=== PATIENT | male | born 1950 | race Caucasian/White ===

== ENCOUNTER 2017-10-20 08:11 | Outpatient (CLI) | payer MEDICARE, OTHER ==
--- NOTE | 2017-10-20 10:53 | MRI ---
BRAIN MRI WITH AND WITHOUT CONTRAST: HISTORY: Pituitary protocol. Brain lab protocol. History of tumor. Previous resection in 2016. COMPARISON: 06/27/14. TECHNIQUE: Brain MRI and pituitary gland MRI are performed with and without intravenous Gadolinium administratio n. Multisequential, multiplanar imaging is performed. FINDINGS: Calvarium has a normal T1 marrow signal intensity. Midline brain parenchymal structures are unremark able. Central arterial flow voids are maintained. Absent restricted diffusion. Partially empty sella is noted. Pituitary stalk is midline. The optic chiasm and pre-chiasmatic opt ic nerves do not have any mass effect. T2 and FLAIR white matter hyperintensities are again noted. The degree of FLAIR white matter hyperin tensity has progressed since the previous examination. Findings may be due to chronic small-vessel i schemic change. The previously noted FLAIR hyperintensity in the left suprasellar region is no longe r evident. Postcontrast dynamic images do not demonstrate evidence of a microadenoma or macroadenoma, associated with the pituitary gland. Residual pituitary tissue is noted in the sella. There is intrinsic T1 h ypointensity without evidence of enhancement along the left aspect of the sella which may represent a symmetrically prominent osseous margin of the sella. There is similar signal intensity as to adjacen t clinoid process on the T2 weighted images. No pathologic enhancement of the brain parenchyma. IMPRESSION: No MR evidence of macroadenoma or microadenoma. POS: [facility]
== END 2017-10-20 08:12 | disposition home or self-care (01) ==
LOC: TBSIIMAG 08:11
PROVIDERS: ATTEND Neurological Surgery
DX: D44.3 Neoplasm of uncertain behavior of pituitary gland (principal)
CPT/HCPCS: 70553; 82565

== ENCOUNTER 2017-10-28 09:50 | Outpatient (CLI) | payer MEDICARE ==
--- NOTE | 2017-10-28 12:52 | MRI ---
MRI CERVICAL SPINE WITHOUT CONTRAST: HISTORY: M47.812 (cervical spondylosis without myelopathy). Severe neck pain. COMPARISON: Cervical spine MRI from 2015. FINDINGS: The cerebellar tonsils terminate just below the foramen magnum. The marrow signal in the clivus is n ormal. Mildly exaggerated cervical lordosis. Mild bilateral symmetric paraspinal muscular atrophy. No acute fracture. No malalignment. No marrow infiltrative process of the cervical spine. The levels are as follows: C2-C3: Mild disk desiccation. No neural foraminal or spinal canal narrowing. C3-C4: There is a broad-based posterior disk osteophyte complex. No evidence of any process hypertr ophy. There is moderate bilateral neural foraminal narrowing. There is mild left effacement in the ventral CSF space of the canal that measures over a centimeter. C4-C5: Moderate disk desiccation. Moderate uncinate process hypertrophy and posterior disk osteophy te complex. Moderate facet arthrosis. Moderate right and mild left-sided neural foraminal narrowing . The spinal canal is not significantly narrowed. C5-C6: Extensive posterior degenerative disk space height loss. There is a right central, paracentr al, and subforaminal posterior disk osteophyte complex causing moderate to severe right-sided neural foraminal narrowing, moderate left-sided neural foraminal narrowing, and mild ligamentum flavum hyper trophy. The spinal canal is not significantly narrowed. C6-C7: Mild degenerative disk space height loss. Disk desiccation. There is uncinate process hyper trophy. There is moderate facet arthrosis. There is moderate left and mild right-sided neural forami nal narrowing. The spinal canal measures over a centimeter. C7-T1: Mild disk desiccation. Mild facet arthrosis. No significant neural foraminal or spinal tatyana l narrowing. IMPRESSION: 1. Moderate spondylosis, as described above. 2. Multilevel areas of neural foraminal narrowing. POS: [facility]
--- NOTE | 2017-10-28 13:20 | MRI ---
MRI OF LUMBAR SPINE: DATE: 10/28/17. HISTORY: Intervertebral degenerative disk changes with radiculopathy of the lumbar spine. COMPARISON: 10/01/11. FINDINGS: As noted on prior MRI lumbar spine, there is a large increased T2 and decreased T1 weighted signal in tensity cystic msss incompletely imaged in a left retroperitoneal location. CT exam in 2012 demonstr ated a large Bosniak type II cystic left renal lesion. The remainder of the visualized retroperitone al structures demonstrate a normal MRI appearance. There are a few increased T1 and T2 weighted signal intensity foci seen within the L2 and L3 vertebra l bodies likely related to focal areas of fat or small hemangiomas. The conus medullaris is normal in appearance and terminates at the level of the L1 vertebral body. L1-2 level: There is no disk bulge or disk herniation. Central spinal canal and neural foramina are patent. L2-3 level: There is no disk bulge or disk herniation. The central spinal canal and neural foramina are patent. L3-4 level: There are mild facet hypertrophic changes present. There is minimal disk bulge, but the central spinal canal and neural foramina are patent. L4-5 level: Prominent facet hypertrophic changes are again seen. There is fluid signal intensity in the facets joints at this level. No significant disk bulge or disk herniation is seen. The central spinal and neural foramina are patent. L5-S1 level: Previously noted tiny annular tear within the intervertebral disk on prior study is lef t perceptible on the current study. There is a tiny central disk protrusion present on this exam. C entral spinal canal and neural foramen are patent. There are mild facet degenerative changes at this level. IMPRESSION: 1. Minimal degenerative disk changes lower lumbar spine. However, the central spinal canal and neur al foramen are widely patent at all levels of the lumbar spine. There are prominent facet hypertroph y changes in the lumbar spine greater at the L4-5 level. 2. Incompletely imaged large cystic lesion retroperitoneal region on the left. A large cystic mass- like lesion was seen on CT abdomen on 10/01/11 which was characteristics of a Bosniak type II cystic r enal lesion. POS: [facility]
== END 2017-10-28 09:51 | disposition home or self-care (01) ==
LOC: TBSIIMAG 09:50
PROVIDERS: ATTEND Nurse Practitioner Family
DX: M51.16 Intervertebral disc disorders with radiculopathy, lumbar region (principal); M47.812 Spondylosis without myelopathy or radiculopathy, cervical region; M47.26 Other spondylosis with radiculopathy, lumbar region; M99.83 Other biomechanical lesions of lumbar region; M48.061 Spinal stenosis, lumbar region without neurogenic claudication; M99.81 Other biomechanical lesions of cervical region
CPT/HCPCS: 72141; 72148

== ENCOUNTER 2017-12-12 14:52 | Outpatient (CLI) | payer MEDICARE ==
[2017-12-12 16:07] LABS: #Basophils 0.1 thou/uL (0.0-0.2); #Eosinphils 0.3 thou/uL (0.0-0.7); #Lymphocytes 2.5 thou/uL (1.20-3.40); #Monocytes 0.7 thou/uL (0.11-0.59); #Neutrophils 6.7 thou/uL (1.40-6.50); %Basophils 0.8 % (0.0-1.0); %Eosinophils 3.3 % (0.0-10.0); %Monocytes 6.7 % (0.0-10.0); %Neutrophils 65.2 % (42.0-75.0); Hemoglobin 15.4 g/dL (14.0-18.0); Mean Corpuscular Hemoglobin 31.3 pg (27.0-31.0); Mean Corpuscular Volume 92.1 fL (78.0-98.0); Mean Platelet Volume 8.5 fL (7.4-10.4); Platelet Count 208 thou/uL (130-400); RBC Distribution Width 12.2 % (11.5-14.5); Red Blood Cell (RBC) Count 4.91 mill/uL (4.70-6.10); White Blood Cell (WBC) Count 10.2 thou/uL (4.8-10.8)
[2017-12-12 16:30] LABS: ALT (SGPT) 15 U/L (8-55); AST (SGOT) 17 U/L (5-34); Albumin 4.2 g/dL (3.4-4.8); Alkaline Phosphatase 88 U/L (40-150); Anion Gap 12 mmol/L (10-20); BUN (Urea Nitrogen) 20 mg/dL (8.4-25.7); Bilirubin, Total 0.8 mg/dL (0.2-1.2); Calc. Creatinine Clearance 0 mL/min (70-130); Calcium 9.3 mg/dL (7.8-10.44); Carbon Dioxide 24 mmol/L (23-31); Chloride 107 mmol/L (98-107); Estimated GFR-MDRD 64; Globulin 3.5 g/dL (2.4-3.5); Glucose 117 mg/dL (80-115); Protein, Total 7.7 g/dL (5.8-8.1); Sodium 139 mmol/L (136-145)
== END 2017-12-12 14:53 | disposition home or self-care (01) ==
LOC: LABBT 14:52
PROVIDERS: ATTEND Surgery
DX: Z01.818 Encounter for other preprocedural examination (principal); Z98.84 Bariatric surgery status
CPT/HCPCS: 80053; 85025; 93005; 93010

== ENCOUNTER 2017-12-13 12:20 | Outpatient (CLI) | payer MEDICARE ==
--- NOTE | 2017-12-13 13:43 | RAD ---
ESOPHOGRAM: History: Dysphagia. Prior lap band surgery. Abdominal pain. FINDINGS: Single column barium evaluation of the esophagus shows lap band at the GE junction in good radiograph ic position. No significant obstruction of flow restriction of contrast. Small hiatal hernia with min imal reflux. No leak of contrast. IMPRESSION: Very small hiatal hernia with minimal reflux. Lap band is in good position without evidence of compli cation or significant restriction of flow. POS: [facility]
== END 2017-12-13 12:21 | disposition home or self-care (01) ==
LOC: RAD 12:20
PROVIDERS: ATTEND Surgery
DX: Z48.815 Encounter for surgical aftercare following surgery on the digestive system (principal); Z98.84 Bariatric surgery status; K44.9 Diaphragmatic hernia without obstruction or gangrene; K21.9 Gastro-esophageal reflux disease without esophagitis
CPT/HCPCS: 74220

== ENCOUNTER 2017-12-16 09:59 | Day surgery (SDC) | payer MEDICARE ==
[2017-12-15 16:18] VITALS: BMI 38.7
[2017-12-16] MEDS ORDERED: Midazolam HCl 2 mg/2 ml Vial ONE (10:42)
[2017-12-16] MEDS ORDERED: Fentanyl 250 MCG/5 ML VIAL ONE (10:42)
[2017-12-16] MEDS ORDERED: Lidocaine 2% Jelly 5 ML TUBE ONE (10:43)
[2017-12-16] MEDS ORDERED: Bupivacaine/Epinephrine 0.25% 30 ML VIAL ONE (10:45)
[2017-12-16] MEDS ORDERED: CEFAZOLIN/Water 2 GM/20 ML SYRINGE ONE (10:53)
[2017-12-16] MEDS ORDERED: SUGAMMADEX SODIUM 200 MG/2 ML VIAL ONE (11:50)
--- NOTE | 2017-12-16 12:24 | OP ---
DATE OF PROCEDURE: 12/16/2017 PREOPERATIVE DIAGNOSIS: Obstructed lap band. SURGEON: Gómez Mckeon M.D. PROCEDURE: Laparoscopic removal of lap band and port. INDICATIONS: A 67-year-old male who has an empty lap band, he is unable to eat any solid food. Uppe r GI showed reflux. FINDINGS: The system was intact. Moderate adhesions. PROCEDURE IN DETAIL: After informed consent was obtained, the patient was taken to the operating alyssa m and given general endotracheal anesthesia. He was placed in the supine position. The abdomen was prepped and draped in usual fashion. Local anesthesia infiltrated subcutaneously and deep. A 5 mm i ncision was performed approximately 7 inches below the xiphoid slightly to the left. Veress needle i nserted. Drop test performed. Pneumoperitoneum was created to a volume of 2 liters of carbon dioxid e. Utilizing a bladeless 5 mm trocar and 0 degree laparoscope direct visual entry in the abdominal c avity was performed. Pneumoperitoneum was then created to a pressure of 15 mmHg and the patient plac ed in steep reverse Trendelenburg position. Nathansen liver retractor inserted. Left lobe of liver retracted superiorly. A 12 mm port was placed at the port site and a 5 mm port placed just to the le ft of the falciform. I had to add an extra 5 mm port for retraction as anesthesia could not insert a NG tube to decompress the stomach. The stomach was retracted inferiorly. The band was found. The buckle was dissected out. The buckle was unlocked, then Anesthesia was able to insert the NG tube. The capsule was incised. The band was removed from around the stomach and then removed from the abdo men. Hemostasis was assured. Trocars and retractors removed. The lap band port was dissected out a nd removed intact. Hemostasis was assured. The subcutaneous reapproximated with interrupted 3-0 Herberth ryl. Skin closed with interrupted 4-0 Rapide. Dermabond applied. The patient tolerated the procedu re well and was transferred to recovery in good condition. Sponge and needle count verified correct x2.
== END 2017-12-16 13:45 | disposition home or self-care (01) ==
LOC: SDC 09:59 → EDSTATUS 16:24
PROVIDERS: ATTEND Surgery
PROC: 0DP64CZ Removal of Extraluminal Device from Stomach, Percutaneous Endoscopic Approach (ICD-10-PCS; principal; 2017-12-16)
DX: K95.09 Other complications of gastric band procedure (principal); K21.9 Gastro-esophageal reflux disease without esophagitis; Z79.899 Other long term (current) drug therapy
CPT/HCPCS: J2250; J3010

== ENCOUNTER 2017-12-19 11:11 | Outpatient (CLI) | payer MEDICARE ==
--- NOTE | 2017-12-19 13:27 | RAD ---
FOUR VIEWS CERVICAL SPINE: Comparison: MRI cervical spine, 10-28-17. History: Neck pain for seven years. History of arthritis. FINDINGS: AP, swimmer's, flexion, and extension views of the cervical spine were performed. The vertebral ayde s demonstrate normal height and alignment without fracture or subluxation. Alignment is unchanged wit h flexion and extension. No prevertebral soft tissue swelling is seen. IMPRESSION: Unchanged alignment of the cervical spine with bending. POS: [facility]
== END 2017-12-19 11:12 | disposition home or self-care (01) ==
LOC: TBSIIMAG 11:11
PROVIDERS: ATTEND Neurological Surgery
DX: M54.12 Radiculopathy, cervical region (principal)
CPT/HCPCS: 72040

== ENCOUNTER 2018-02-07 14:43 | Outpatient (CLI) | payer MEDICARE ==
[2018-02-07 16:11] LABS: Hemoglobin 14.9 g/dL (14.0-18.0); Mean Corpuscular HGB CONC 34.1 g/dL (32.0-36.0); Mean Corpuscular Hemoglobin 31.8 pg (27.0-31.0); Mean Corpuscular Volume 93.1 fL (78.0-98.0); Mean Platelet Volume 8.3 fL (7.4-10.4); Platelet Count 220 thou/uL (130-400); RBC Distribution Width 12.5 % (11.5-14.5); White Blood Cell (WBC) Count 9.5 thou/uL (4.8-10.8)
[2018-02-07 16:16] LABS: Prothrombin Time 13.1 SEC (12.0-14.7)
== END 2018-02-07 14:44 | disposition home or self-care (01) ==
LOC: LABBT 14:43
PROVIDERS: ATTEND Neurological Surgery
DX: Z01.812 Encounter for preprocedural laboratory examination (principal); M47.22 Other spondylosis with radiculopathy, cervical region
CPT/HCPCS: 85027; 85610; 85730

== ENCOUNTER 2018-02-07 15:00 | Inpatient (IN) | payer MEDICARE ==
[2018-02-07 15:06] VITALS: BMI 38.7
--- NOTE | 2018-02-08 13:32 | HP ---
HISTORY OF PRESENT ILLNESS: Mr. Jang is a patient who we have treated for pituitary adenoma in the past. He has returned to us to discuss longstanding neck pain. The pain is worse on the right comp ared to the left and affects the top of his shoulders but not the arms. There is no numbness, weakne ss, imbalance or incontinence at this time. The neck pain has been there for years and is associated with headaches as well. Injection of therapy, medications, and anti-inflammatories, activity modifi cation at times has not made the neck any better. PAST MEDICAL HISTORY: Hypertension, cyst on the kidneys, headaches, pituitary adenoma. ALLERGIES: No known drug allergies. PAST SURGICAL HISTORY: Lap band 02/2010, pituitary adenoma, craniotomy in 2016. Laparoscopic band r emoval 12/2017. MEDICATIONS: Blood pressure medications, venlafaxine HCL extended release, Flomax. FAMILY HISTORY: Father is alive. Mother is alive. Siblings are alive. SOCIAL HISTORY: The patient is a nonsmoker and does not use any other tobacco products. Drinks alco hol occasionally. Does not use any other illicit drugs. Works in the [employer]. He is with 3 children. Drinks 1-2 cups of caffeinated beverages a day. PHYSICAL EXAMINATION: GENERAL: Patient is alert and oriented, sitting up comfortably in office no sign of physical distres s. RESPIRATORY: Normal work of breathing room air. Normal chest rise, equal bilateral symmetrical. CARDIAC: Regular rate and rhythm. Normal S1, S2. NEUROLOGIC: Gait and station are normal. Motor exam, mild right deltoid weakness. There is normal strength in the biceps, triceps, wrist extensors, finger extensors, and interossei. Sensory; normal at the biceps, brachial radialis and triceps. No clonus. IMAGING: MRI cervical spine. Right foraminal disease, most severe at C3-4, C4-5, C5-6, no cord comp ression. ASSESSMENT: Cervical spondylosis without myelopathy and cervical disk disorder with radiculopathy. PLAN. Dr. Izquierdo has offered ACDF C3 through 6. We have discussed the indications, risks, benefi ts, alternatives, and expected results of the surgery. The risks included, but were not limited to b leeding, infection, CSF leak, nerve damage, weakness, swallowing trouble, feeding tube placement, tra cheal injury, esophageal injury, vocal cord injury, spinal cord injury, incontinence, paralysis, vent ilator dependence, wheelchair dependence, stroke, also vision, carotid artery injury, jugular vein in jury, hardware misplacement, cardiopulmonary complications of anesthesia or . Long-term complic ations discussed included, but were not limited to hardware failure and degradation of surrounding di sks. The patient states that he understands the risks of surgery and is willing to proceed.
[2018-02-10] MEDS ORDERED: Sodium Chloride 0.9% 30 ML ONE (06:18)
[2018-02-10] MEDS ORDERED: Thrombin 5000 UNITS/5 ML VIAL ONE (06:18)
[2018-02-10] MEDS ORDERED: Midazolam HCl 2 mg/2 ml Vial ONE (06:41)
[2018-02-10] MEDS ORDERED: CEFAZOLIN/Water 2 GM/20 ML SYRINGE ONE (06:47)
[2018-02-10] MEDS ORDERED: Fentanyl 100 MCG/2 ML VIAL ONE ×5 (06:58→13:22)
[2018-02-10] MEDS ORDERED: Promethazine HCl 25 MG/ML VIAL SLOW IVP PRN (11:20)
[2018-02-10] MEDS ORDERED: Promethazine HCl 25 MG/ML VIAL IM PRN ×2 (11:20→11:41)
[2018-02-10] MEDS ORDERED: HYDROmorphone 2 MG/ML VIAL SLOW IVP PRN (11:20)
[2018-02-10] MEDS ORDERED: Meperidine HCl/PF 25 MG/ML VIAL SLOW IVP PRN (11:20)
[2018-02-10] MEDS ORDERED: Morphine Sulfate 2 MG/ML SYRINGE SLOW IVP PRN (11:20)
[2018-02-10] MEDS ORDERED: Ondansetron HCl/PF 4 MG/2 ML Vial IVP PRN ×2 (11:20→11:41)
[2018-02-10] MEDS ORDERED: diphenhydrAMINE 50 MG/ML VIAL IVP PRN (11:41)
[2018-02-10] MEDS ORDERED: Acetaminophen 650 MG Suppository PR PRN (11:41)
[2018-02-10] MEDS ORDERED: traMADol HCl 50 MG TAB PO PRN ×2 (11:41)
[2018-02-10] MEDS ORDERED: Cyclobenzaprine 10 MG TAB PO PRN (11:41)
[2018-02-10] MEDS ORDERED: Promethazine 25 MG TAB PO PRN (11:41)
[2018-02-10] MEDS ORDERED: Prochlorperazine 10 MG/2 ML VIAL IM PRN (11:41)
[2018-02-10] MEDS ORDERED: Promethazine HCl 12.5 MG SUPP PR PRN (11:41)
[2018-02-10] MEDS ORDERED: diphenhydrAMINE 25 MG CAP PO PRN (11:41)
[2018-02-10] MEDS ORDERED: tiZANidine HCl 4 MG TAB PO PRN (11:41)
[2018-02-10] MEDS ORDERED: Acetaminophen 325 MG TAB PO PRN (11:41)
[2018-02-10] MEDS ORDERED: Acetaminophen/Codeine 30-300mg Tablet PO PRN ×2 (11:41)
[2018-02-10] MEDS ORDERED: Scopolamine 1.5 mg/72 hour Patch TD SCH (12:00)
--- NOTE | 2018-02-10 12:47 | OP ---
DATE OF PROCEDURE: 02/10/2018 SURGEON: Nura Izquierdo M.D. ASSEMBLER INSTALLER GENERAL: None. PREOPERATIVE INDICATION: Treat pain, prevent neurological deterioration. PREOPERATIVE DIAGNOSES: Multilevel cervical spondylosis with right-sided foraminal stenosis at C3-4, C4-5, and C5-6, right cervical radiculopathies and neck pain. POSTOPERATIVE DIAGNOSES: Multilevel cervical spondylosis with right-sided foraminal stenosis at C3-4 , C4-5, and C5-6, right cervical radiculopathies and neck pain. OPERATIVE PROCEDURE: Anterior cervical diskectomy, intervertebral arthrodesis, placement of interver tebral biomechanical device, anterior cervical plating C3-4, C4-5, C5-6, local morselized autograft, morselized allograft, and operating microscope. PREOPERATIVE MEDICATIONS: Ancef 2 grams IV. DRAIN NUMBER: Zero. DRAIN TYPE: None. OPERATIVE DICTATION: The patient was brought to the operating room. General endotracheal anesthesia was induced. The patient was positioned supine and his neck kept in normal anatomic alignment. The head was rested in a donut shaped head rest and a lateral fluoro radiograph was used to plan our inc ision. The right side of the neck was sterilely prepped and draped. We opened our incision with a 1 0 blade knife and controlled bleeding with bipolar cautery. We dissected sharply to the platysma and cut this muscle in line with our incision. We continued our dissection medial to the sternocleidoma stoid and lateral to the trachea and esophagus. We arrived at the prevertebral space and placed a ma rker at C3-4. We took a lateral fluoro radiograph to confirm the levels upon which we were operating . We then elevated the longus colli muscles off the anterior surface of C3, C4, C5, C6, and placed a self-retaining retractor. We placed distraction pins at C3 and C5 and distracted across both of the intervening interspaces. We incised the interspaces with a 15 blade knife and removed disk contents using curettes and rongeurs. As we approached the posterior longitudinal ligament and brought the o perating microscope into the field. Under microscopic magnification using microsurgical techniques, we removed the remainder of the inter vertebral disk. We accessed the ventral epidural space with a micro curette and removed posterior os teophytes and posterior longitudinal ligament from [address] to the other across the enti re interspace and decompress the dura well. This was done with Kerrison rongeurs. At the completion of decompression, we turned our attention to arthrodesis. We prepared the endplates for arthrodesis using curettes, but to remove the cartilaginous cap. We measured the height of each interspace with a bone rasp. The C3-4 interspace measured 8 mm and the C4-5 interspace measured 7 mm. The appropri ately sized PEEK intervertebral grafts were brought into the field. Osteophytes from anterior and po sterior margin of the vertebral bodies were carefully cleaned of their soft tissue attachments on the back table. The bone was morselized and added to demineralized bone matrix as our fusion substrate. The substrate was packed in the PEEK grafts and the grafts were advanced into the respective inters paces under radiographic guidance to the appropriate depth. We then removed our distraction pin from C3 and placed it at C6. We moved our lateral retractors under the longus colli muscles at C5 and C6 and we incised the interspace with a 15 blade knife. We removed disk contents using curettes and ro ngeurs. Using microsurgical techniques, we removed the remainder of the intervertebral disks, accessed the ve ntral epidural space with a micro curette, and removed posterior osteophytes and posterior longitudin al ligament across the entire interspace with micro curettes. At the completion of decompression, we prepared the endplates for grafting with curettes. We removed the cartilaginous cap. We measured t he height of the interspace to 8 mm. An 8 mm PEEK graft was brought into the field, loaded with regino neralized bone matrix and morselized autograft and advanced into the C5-6 interspace under radiograph ic guidance to the appropriate depth. We then removed both of our distraction pins and took the oper ating microscope out of the field. Anterior osteophytes were smoothed and a 54 mm anterior cervical plate was brought into the field. We drilled military pilot holes through the plate into the vertebral segmen ts from C3-C6 and we affixed the plate using 14 mm screws. Variable angle screws were used at C3, C4 , and C5 and fixed angle screws at C6. We engaged the locking mechanism over each of the 8 screws. AP and lateral fluoro radiographs confirmed adequate position of instrumentation. We irrigated copio usly with bacitracin irrigation. We closed the wound in anatomic layers and applied a sterile dressi ng. This was a clean case and no contamination.
[2018-02-10] MEDS ORDERED: HYDROmorphone 2 MG/ML VIAL ONE (13:30)
[2018-02-10] MEDS ORDERED: CEFAZOLIN/Water 2 GM/20 ML SYRINGE SLOW IVP SCH (14:00)
[2018-02-10] MEDS: CEFAZOLIN/Water 2 GM/20 ML SYRINGE SLOW IVP SCH ×2 (17:06→23:29)
[2018-02-11] MEDS ORDERED: Tamsulosin HCl 0.4 MG CAP PO SCH (06:00)
[2018-02-11 08:31] VITALS: BP 102/68; TEMP 98.1
--- NOTE | 2018-02-14 08:50 | DIS ---
DATE OF ADMISSION: 02/10/2018 DATE OF DISCHARGE: 02/11/2018 DISCHARGE DIAGNOSES: Include, 1. Neck pain with cervical spondylosis. 2. Cervical radiculopathy. 3. Cervical stenosis. HOSPITAL COURSE: Mr. Jang was admitted to undergo C3 through C6 ACDF with Dr. Izquierdo. Required an overnight stay in surgical unit and my criteria for discharge home in the next day. He was given appropriate prescriptions, outpatient followup information and patient education. Again, at the oscar e of discharge, had good strength in the bilateral lower extremities with slight amount of core stren gth but otherwise was given . Patient's family members to call the office with questions or concerns.
== END 2018-02-11 09:51 | disposition home or self-care (01) | DRG 473 ==
LOC: SURG A 02-10 05:39 → SJJU 02-10 13:41
PROVIDERS: ADMIT Neurological Surgery; ATTEND Neurological Surgery
PROC: 0RT30ZZ Resection of Cervical Vertebral Disc, Open Approach (ICD-10-PCS; principal; 2018-02-10)
PROC: 0RG20A0 Fusion of 2 or more Cervical Vertebral Joints with Interbody Fusion Device, Anterior Approach, Anterior Column, Open Approach (ICD-10-PCS; 2018-02-10)
DX: M47.812 Spondylosis without myelopathy or radiculopathy, cervical region (principal); M54.12 Radiculopathy, cervical region; I10 Essential (primary) hypertension; M47.22 Other spondylosis with radiculopathy, cervical region; Z01.812 Encounter for preprocedural laboratory examination
CPT/HCPCS: 76001; 85027; 85610; 85730; 96374; A4216; C1713; C1776; J0131; J1170; J2250; J2405; J3010; J3490

== ENCOUNTER 2018-04-11 13:18 | Outpatient (CLI) | payer MEDICARE ==
--- NOTE | 2018-04-11 15:04 | RAD ---
FOUR VIEWS OF THE CERVICAL SPINE: Comparison: 12-19-17 History: Status post-surgery for a neck fusion. FINDINGS: AP, lateral, swimmer's and odontoid views of the cervical spine shows the patient to be status post a nterior fusion of C3 through C6. Disc spacers are seen in the intervening disc spaces. No perihardwar e loosening is seen. No prevertebral soft tissue swelling is seen. Vertebral bodies demonstrate ricardo l alignment without subluxation. IMPRESSION: Post-surgical changes of the cervical spine without evidence of complication. POS: [facility]
== END 2018-04-11 13:19 | disposition home or self-care (01) ==
LOC: TBSIIMAG 13:18
PROVIDERS: ATTEND Neurological Surgery
DX: M50.20 Other cervical disc displacement, unspecified cervical region (principal); Z98.1 Arthrodesis status
CPT/HCPCS: 72040

== ENCOUNTER 2018-05-12 14:41 | Outpatient (CLI) | payer MEDICARE ==
--- NOTE | 2018-05-12 15:34 | RAD ---
3 VIEWS LUMBAR SPINE: Date: 05/12/18 INDICATION: Low back pain and numbness in the left arm. IMPRESSION: No abnormal translational motion seen involving the lumbar spine. There are vascular calcifications i nvolving the abdominal aorta. There is mild multilevel disc degenerative disease. POS: [facility]
--- NOTE | 2018-05-12 16:04 | MRI ---
MRI OF THE LUMBAR SPINE WITHOUT CONTRAST: 05/12/18 INDICATION: History of low back pain with numbness in the left upper extremity. COMPARISON: Prior MR lumbar spine dated 10/28/17. FINDINGS: There is small areas of focal fatty marrow retention versus hemangioma involving the L3 and L2 verteb ral bodies. The conus is seen to terminate at approximately T12-L1. There is partial visualization of a large left renal cyst better seen on a CT of the abdomen and pelvis dated 03/25/17. No acute fracture is evident. The visualized retroperitoneum and paravertebral soft tissues appear wi thin normal limits. At L5-S1, there is mild facet joint degenerative change that is stable toe the prior exam. At the L4-5 level, there is moderate to severe facet joint degenerative change and a broad based bulg e. There is no appreciable central canal or neural foraminal narrowing. At L3-4, there is a broad based bulge with facet joint degenerative change. There is no appreciable central canal or neural foraminal narrowing. At the L2-3 level, there is no appreciable central canal or neural foraminal narrowing. At L1-2, there is no appreciable central canal or neural foraminal narrowing. There is mild facet lebron int degenerative change. IMPRESSION: Stable spondylosis of the lumbar spine. POS: [facility]
== END 2018-05-12 14:42 | disposition home or self-care (01) ==
LOC: TBSIIMAG 14:41
PROVIDERS: ATTEND Nurse Practitioner Family
DX: M51.16 Intervertebral disc disorders with radiculopathy, lumbar region (principal); I70.0 Atherosclerosis of aorta; M47.26 Other spondylosis with radiculopathy, lumbar region
CPT/HCPCS: 72100; 72148

== ENCOUNTER 2018-09-04 14:18 | Outpatient (CLI) | payer MEDICARE ==
--- NOTE | 2018-09-04 15:26 | RAD ---
CERVICAL SPINE: Total of 6 views. Lateral view is taken in neutral, flexion, and extension positions. INDICATION: Cervical radiculopathy. Comparison made to cervical spine dated 04/11/18. FINDINGS: Postoperative changes again noted. Anterior plate and screws again seen transfixing C3, C4, C5, and C 6 with interbody implants throughout these levels, which appear to be a metallic plate, and the impla nts appear unchanged from the prior study. Posterior alignment is preserved. There are mild degenerat lila changes which appear stable. IMPRESSION: Stable postoperative and degenerative changes of cervical spine when compared to prior study. POS: [facility]
== END 2018-09-04 14:19 | disposition home or self-care (01) ==
LOC: TBSIIMAG 14:18
PROVIDERS: ATTEND Neurological Surgery
DX: M47.22 Other spondylosis with radiculopathy, cervical region (principal); Z98.890 Other specified postprocedural states
CPT/HCPCS: 72040

== ENCOUNTER 2018-10-02 06:55 | Day surgery (SDC) | payer MEDICARE ==
[2018-09-28 10:49] VITALS: BMI 38.7
--- NOTE | 2018-10-02 09:20 | RAD ---
Myelogram of Cervicalspine CLINICAL HISTORY: Pain and Radiculopathy PROCEDURE: Informed consent was obtained. Head Bookkeeper imaging was performed. Patient was placed in a prone position and the skin of the low back was prepped and draped in a standard sterile fashion. Topical anesthesia was achieved with buffered 1% lidocaine. 22-gauge spinal needle was then advanced uneventf ully into the thecal sac from a posterior para midline approach at the leftL3-4level. 11 cc of radiopaque contrast was instilled under low pressure into the thecal sac, upon return of clear colorl ess CSF the needle hub. Imaging was stored for documentation. Needle was removed. Patient tolerated the procedure well, without complication evident. Patient was then transferred to CT to undergo subsequent CT myelogram imaging. Reference separate charmaine self(s) for additional details. FINDINGS: Intraoperative imaging reveals a needle overlying the lumbar spinal canal, with subsequent instillation of radiopaque contrast within the thecal sac. Fluoroscopy data:0.2minutes, 70mcg/sq m IMPRESSION: Technically successful cervical myelogram, as above.
--- NOTE | 2018-10-02 10:52 | CT ---
CT CERVICAL SPINE WITH INTRATHECAL CONTRAST CT CERVICAL MYELOGRAM: HISTORY: Neck Pain FINDINGS: The craniocervical junction is unremarkable. There is anterior fusion spanning C3-C6 with metallic plate, 2 vertebral body screws, as well as inte rvening disc space prostheses. No obvious hardware complication is identified. Incidental note of subpleural patchy opacities which could be on the basis of atelectasis. Interstiti al fibrotic disease is not excluded. There is a partially imaged pulmonary bleb, anteriorly within the right lung. C1-2:No significant stenosis. C2-3:No significant stenosis. C3-4:Broad-based osteophyte without central canal stenosis. There is bilateral uncinate process hyper trophy with moderate right and mild left foraminal stenosis C4-5: Prominent streak artifact does limit visualization. Bilateral uncinate process hypertrophy with moderate right foraminal stenosis. Mild left foraminal compromise. Asymmetric degenerative hypertrophy of the right facet joint. C5-6:Broad-based osteophyte without significant central canal stenosis. Bilateral uncinate process hy pertrophy with moderate right and mild left neural foraminal narrowing C6-7: Left asymmetric disc osteophyte with moderate left foraminal stenosis. Mild narrowing of the ri ght neural foramen. No high-grade central canal stenosis C7-T1:No significant stenosis. IMPRESSION: Multilevel degenerative change throughout the postoperative cervical spine, as outlined above. Findin gs result in multilevel bilateral osseous compromise of the neural foramina. No significant osseous compromise of the central canal. Transcribed Date/Time: 10/02/2018 10:55 AM
[2018-10-02] MEDS ORDERED: Iopamidol-M 300 61% 15 ML VIAL ONE (15:18)
== END 2018-10-02 09:55 | disposition home or self-care (01) ==
LOC: RAD 06:55
PROVIDERS: ATTEND Neurological Surgery
PROC: B01B1ZZ Fluoroscopy of Spinal Cord using Low Osmolar Contrast (ICD-10-PCS; principal; 2018-10-02)
DX: M50.123 Cervical disc disorder at C6-C7 level with radiculopathy (principal); I10 Essential (primary) hypertension; Z98.1 Arthrodesis status; Z98.890 Other specified postprocedural states; Z79.899 Other long term (current) drug therapy
CPT/HCPCS: 62302; 72126; Q9967

== ENCOUNTER 2018-12-12 12:55 | Outpatient (CLI) | payer MEDICARE ==
--- NOTE | 2018-12-12 14:26 | MRI ---
MRI BRAIN 12/12/18 HISTORY: Follow-up exam. Pituitary neoplasm. COMPARISON: 10/20/17, 06/27/14. FINDINGS: Calvarium has a normal T1 marrow signal intensity. Midline brain parenchymal structures are unremarka ble. No parenchymal mass, mass effect, or midline shift. Age appropriate brain volume. Cortical wu-white matter differentiation is preserved. No evidence of hydrocephalus. T2 and FLAIR white matter hyperintensities are similar to the previous examination and are likely due to minimal chronic small vessel ischemic change. Central arterial flow voids are maintained. Absent restricted diffusion. No pathologic enhancement of the brain parenchyma. Adequate aeration of the sinuses and mastoid air cells. IMPRESSION: 1. Unremarkable pre and postcontrast brain MRI. 2. No appreciable change when compared to the previous examination. No evidence of a pituitary m acroadenoma or microadenoma. POS: OFF
== END 2018-12-12 12:56 | disposition home or self-care (01) ==
LOC: TBSIIMAG 12:55
PROVIDERS: ATTEND Neurological Surgery
DX: D44.3 Neoplasm of uncertain behavior of pituitary gland (principal)
CPT/HCPCS: 70553; 82565

== ENCOUNTER 2019-05-06 19:30 | Outpatient (CLI) | payer MEDICARE | END 2019-05-06 19:31 | disposition home or self-care (01) | LOC: SLEEPLAB 19:30 | PROVIDERS: ATTEND Internal Medicine Critical Care Medicine | DX: G47.33 Obstructive sleep apnea (adult) (pediatric) (principal); R53.83 Other fatigue; E66.9 Obesity, unspecified | CPT/HCPCS: 95810 ==

== ENCOUNTER 2019-05-23 19:30 | Outpatient (CLI) | payer MEDICARE | END 2019-05-23 19:31 | disposition home or self-care (01) | LOC: SLEEPLAB 19:30 | PROVIDERS: ATTEND Internal Medicine Critical Care Medicine | DX: G47.33 Obstructive sleep apnea (adult) (pediatric) (principal); R53.83 Other fatigue; E66.9 Obesity, unspecified; I51.89 Other ill-defined heart diseases | CPT/HCPCS: 95811 ==

== ENCOUNTER 2019-11-27 09:20 | Outpatient (CLI) | payer MEDICARE ==
--- NOTE | 2019-11-27 10:15 | CT ---
CT thorax high resolution: 11/27/2019 HISTORY: 69-year-old male with "pulmonary disease" Dyspnea and cough. TECHNIQUE: 1 mm slice thickness with 10 mm gaps. Patient scanned supine, then prone. COMPARISON: 03/19/2019 FINDINGS: Because of the 10 mm intervals, this study is not sensitive for the detection of any pathology (inclu ding neoplasm) other than interstitial lung disease. Mild subpleural reticular densities at posterior lower lobes. No high-grade bronchiectasis. No honeyc ombing. Only 2 of the criteria for IPF/UIP. No pleural effusion or pneumothorax. Huge exophytic left renal upper pole cystic mass. Left subclavian dual lead AICD. No interval change. IMPRESSION: 1.) Nonspecific mild chronic interstitial changes consisting of subpleural reticular densities. 2) no interval change
== END 2019-11-27 09:21 | disposition home or self-care (01) ==
LOC: BICCT 09:20
PROVIDERS: ATTEND Internal Medicine Critical Care Medicine
DX: J84.9 Interstitial pulmonary disease, unspecified (principal)
CPT/HCPCS: 71250

== ENCOUNTER 2020-03-07 13:10 | Outpatient (CLI) | payer MEDICARE ==
--- NOTE | 2020-03-07 14:38 | MRI ---
MR the lumbar spine without contrast INDICATION: Low back pain and bilateral leg pain COMPARISON: Prior exam dated May 12, 2018 TECHNIQUE: Multiplanar multisequence MR images were obtained of lumbar spine without IV contrast. FINDINGS: Bone marrow: Bone marrow signal intensity appears within normal limits. Distal spinal cord and conus: Normal. The conus seen to terminate at L1. Visualized retroperitoneum and paraspinal soft tissues: Partial visualization of the patient's known large left renal cyst. No lymphadenopathy or free fluid identified. Vertebral levels: L5-S1: There is mild facet joint degenerative change but no appreciable central canal or neural irish inal narrowing. This is stable to the prior exam.. L4-5: There is moderate bilateral facet joint degenerative change, stable to prior examination withou t appreciable central canal or neural foraminal narrowing. L3-4: There is [id number] bilateral facet joint degenerative change without appreciable central canal or neural foraminal narrowing which is stable to the prior exam. L2-3: No appreciable central canal or neuroforaminal narrowing. L1-L2: No appreciable central canal or neuroforaminal narrowing. T12-L1: No appreciable central canal or neuroforaminal narrowing. IMPRESSION: 1. Stable lumbar spondylosis without appreciable central canal or neural foraminal narrowing.
== END 2020-03-07 13:11 | disposition home or self-care (01) ==
LOC: MRI 13:10
PROVIDERS: ATTEND Specialist
DX: M51.16 Intervertebral disc disorders with radiculopathy, lumbar region (principal); M47.26 Other spondylosis with radiculopathy, lumbar region
CPT/HCPCS: 72148

== ENCOUNTER 2020-04-10 13:35 | Outpatient (CLI) | payer MEDICARE ==
[2020-04-10] MEDS ORDERED: Magnevist 469MG/ML 20 ML VIAL ONE (14:57)
--- NOTE | 2020-04-10 17:05 | MRI ---
Exam: Brain MRI with and without contrast HISTORY: Pituitary adenoma COMPARISON: 12/12/2018, 10/20/2017, 05/27/2015 FINDINGS: Brain MRI: Hemorrhage: No parenchymal hemorrhage or extra-axial hematoma Calvarium: Appropriate T1 marrow signal intensity Midline brain parenchyma: Unremarkable Cerebrum:No parenchymal mass, mass effect or midline shift. Brain volume is age-appropriate. Cortical wu-white matter differentiation is preserved. Minimal T2 and FLAIR white matter hyperintensities, similar to the previous examination. Minimal chronic small vessel ischemic changes of the white matter are favored. Ventricles: No evidence of hydrocephalus. Sinuses and mastoid air cells: Minimal mucosal thickening of the ethmoid air cells. Diffusion: Central arterial flow is maintained. Absent restricted diffusion. Postcontrast images: No pathologic enhancement of the brain parenchyma. Pituitary MRI: Stable appearance of the pituitary gland. There is slight asymmetric prominence along the right aspect of the pituitary gland, similar to the previous examination. Decreased volume of the left aspect of the pituitary gland compatible with previous surgical resection. On the postcontra st dynamic images, there is no evidence of a delayed enhancing focus to suggest a microadenoma. There is no evidence of a macroadenoma. Pituitary stalk is midline. No mass effect on the optic chias m and prechiasmatic optic nerves. IMPRESSION: 1. No acute intracranial process 2. No evidence of a pituitary microadenoma or pituitary macroadenoma. When compared to the previous e xamination, no appreciable change. Transcribed Date/Time: 04/10/2020 8:18 PM
== END 2020-04-10 13:36 | disposition home or self-care (01) ==
LOC: MRI 13:35
PROVIDERS: ATTEND Neurological Surgery
DX: D35.2 Benign neoplasm of pituitary gland (principal)
CPT/HCPCS: 70553; A9579

== ENCOUNTER 2020-08-21 08:46 | Outpatient (CLI) | payer MEDICARE | END 2020-08-21 08:47 | disposition home or self-care (01) | LOC: BICCT 08:46 | PROVIDERS: ATTEND Internal Medicine Critical Care Medicine | DX: J84.9 Interstitial pulmonary disease, unspecified (principal); K80.20 Calculus of gallbladder without cholecystitis without obstruction; J92.9 Pleural plaque without asbestos | CPT/HCPCS: 71250 ==

== ENCOUNTER 2021-05-14 09:48 | Outpatient (CLI) | payer MEDICARE | END 2021-05-14 09:49 | disposition home or self-care (01) | LOC: BICRAD 09:48 | PROVIDERS: ATTEND Neurological Surgery | DX: M54.12 Radiculopathy, cervical region (principal); Z98.890 Other specified postprocedural states | CPT/HCPCS: 72050 ==

== ENCOUNTER 2021-08-17 09:03 | Outpatient (CLI) | payer MEDICARE | END 2021-08-17 09:04 | disposition home or self-care (01) | LOC: CT 09:03 | PROVIDERS: ATTEND Internal Medicine Critical Care Medicine | DX: J84.9 Interstitial pulmonary disease, unspecified (principal); K80.20 Calculus of gallbladder without cholecystitis without obstruction; N28.1 Cyst of kidney, acquired | CPT/HCPCS: 71250 ==

== ENCOUNTER 2022-07-14 13:32 | Outpatient (CLI) | payer MEDICARE | END 2022-07-14 13:33 | disposition home or self-care (01) | LOC: MRI 13:32 | PROVIDERS: ATTEND Neurological Surgery | DX: D44.3 Neoplasm of uncertain behavior of pituitary gland (principal); R90.82 White matter disease, unspecified | CPT/HCPCS: 70553; 82565 ==

== ENCOUNTER 2022-09-14 10:35 | Outpatient (CLI) | payer MEDICARE | END 2022-09-14 10:36 | disposition home or self-care (01) | LOC: BICRAD 10:35 | PROVIDERS: ATTEND Specialist | DX: M47.816 Spondylosis without myelopathy or radiculopathy, lumbar region (principal); M46.06 Spinal enthesopathy, lumbar region; M43.16 Spondylolisthesis, lumbar region | CPT/HCPCS: 72120 ==

== ENCOUNTER 2022-10-13 13:23 | Outpatient (CLI) | payer MEDICARE | END 2022-10-13 13:24 | disposition home or self-care (01) | LOC: MRI 13:23 | PROVIDERS: ATTEND Nurse Practitioner Pediatrics | DX: M51.16 Intervertebral disc disorders with radiculopathy, lumbar region (principal); M47.816 Spondylosis without myelopathy or radiculopathy, lumbar region; M48.061 Spinal stenosis, lumbar region without neurogenic claudication; M47.817 Spondylosis without myelopathy or radiculopathy, lumbosacral region; M51.36 Other intervertebral disc degeneration, lumbar region | CPT/HCPCS: 72148 ==

== ENCOUNTER 2022-12-20 13:00 | Outpatient (CLI) | payer MEDICARE | END 2022-12-20 13:01 | disposition home or self-care (01) | LOC: SCSRAD 13:00 | PROVIDERS: ATTEND Family Medicine | DX: R06.00 Dyspnea, unspecified (principal) | CPT/HCPCS: 71046 ==

== ENCOUNTER 2023-02-11 10:05 | Outpatient (CLI) | payer MEDICARE | END 2023-02-11 10:06 | disposition home or self-care (01) | LOC: SCSRAD 10:05 | PROVIDERS: ATTEND Family Medicine | DX: M25.571 Pain in right ankle and joints of right foot (principal); M25.471 Effusion, right ankle ==

== ENCOUNTER 2023-11-30 10:07 | Outpatient (CLI) | payer MEDICARE | END 2023-11-30 10:08 | disposition home or self-care (01) | LOC: RAD 10:07 | PROVIDERS: ATTEND Internal Medicine Critical Care Medicine | DX: R06.00 Dyspnea, unspecified (principal) | CPT/HCPCS: 71046 ==

== ENCOUNTER 2024-06-05 03:15 | Emergency (ER) | payer MEDICARE, OTHER ==
[2024-06-05 04:09] LABS: #Basophils 0.08 10x3/uL (0.0-0.2); %Basophils 0.6 % (0.0-1.0); %Lymphocytes 16.9 % (21.0-51.0); %Monocytes 7.6 % (0.0-10.0); %Neutrophils 72.1 % (42.0-75.0); Hematocrit 41.6 % (42.0-52.0); Hemoglobin 13.4 g/dL (14.0-18.0); Mean Corpuscular HGB CONC 32.2 g/dL (32.0-36.0); Mean Corpuscular Hemoglobin 31.4 pg (27.0-31.0); Mean Corpuscular Volume 97.4 fL (78.0-98.0); Mean Platelet Volume 10.9 fL (7.4-10.4); Platelet Count 201 10x3/uL (130-400); RBC Distribution Width 14.4 % (11.5-14.5); Red Blood Cell (RBC) Count 4.27 mill/uL (4.70-6.10)
[2024-06-05] MEDS ORDERED: Ketorolac Tromethamine 30 MG (1 mL) VIAL ONE (04:22)
[2024-06-05] MEDS ORDERED: Morphine 4 MG/ML VIAL ONE (04:22)
[2024-06-05 04:31] LABS: ALT (SGPT) 15 U/L (8-55); AST (SGOT) 14 U/L (5-34); Albumin 3.4 g/dL (3.4-4.8); Alkaline Phosphatase 84 U/L (40-110); Anion Gap 15 mmol/L (10-20); BUN (Urea Nitrogen) 29 mg/dL (8.4-25.7); Bilirubin, Total 0.7 mg/dL (0.2-1.2); Calc. Creatinine Clearance 0 mL/min (70-130); Calcium 8.5 mg/dL (7.8-10.44); Carbon Dioxide 20 mmol/L (23-31); Chloride 105 mmol/L (98-107); Estimated GFR 63; Globulin 2.7 g/dL (2.4-3.5); Glucose 187 mg/dL (83-110); Protein, Total 6.1 g/dL (5.8-8.1); Sodium 136 mmol/L (136-145)
[2024-06-05] MEDS ORDERED: fentaNYL 50 mcg/mL 1 mL Vial ONE (05:31)
== END 2024-06-05 07:35 | disposition home or self-care (01) ==
LOC: ERS 03:15
DX: S42.211A Unspecified displaced fracture of surgical neck of right humerus, initial encounter for closed fracture (principal); I13.10 Hypertensive heart and chronic kidney disease without heart failure, with stage 1 through stage 4 chronic kidney disease, or unspecified chronic kidney disease; I50.9 Heart failure, unspecified; N18.9 Chronic kidney disease, unspecified; E78.5 Hyperlipidemia, unspecified; W01.0XXA Fall on same level from slipping, tripping and stumbling without subsequent striking against object, initial encounter; Y93.01 Activity, walking, marching and hiking; Y92.000 Kitchen of unspecified non-institutional (private) residence as the place of occurrence of the external cause
CPT/HCPCS: 70450; 72125; 72128; 72131; 73030; 80053; 85025; 93005; 96374; 96375; 99284; J1885; J2272; J3010; 36415

== ENCOUNTER 2025-04-09 05:55 | Day surgery (SDC) | payer MEDICARE ==
[2025-04-08 11:54] VITALS: BMI 34.9
[2025-04-09] MEDS ORDERED: Lidocaine 1% PF 5 ML VIAL ONE (07:19)
[2025-04-09] MEDS ORDERED: PROPOFOL 40 ML ONE (07:19)
== END 2025-04-09 09:12 | disposition home or self-care (01) ==
LOC: SDC 05:55
PROVIDERS: ATTEND Internal Medicine Gastroenterology
PROC: 0DBK8ZZ Excision of Ascending Colon, Via Natural or Artificial Opening Endoscopic (ICD-10-PCS; principal; 2025-04-09)
PROC: 0DBL8ZZ Excision of Transverse Colon, Via Natural or Artificial Opening Endoscopic (ICD-10-PCS; 2025-04-09)
PROC: 0DBN8ZZ Excision of Sigmoid Colon, Via Natural or Artificial Opening Endoscopic (ICD-10-PCS; 2025-04-09)
PROC: 0DBM8ZZ Excision of Descending Colon, Via Natural or Artificial Opening Endoscopic (ICD-10-PCS; 2025-04-09)
PROC: 0DBH8ZZ Excision of Cecum, Via Natural or Artificial Opening Endoscopic (ICD-10-PCS; 2025-04-09)
DX: D64.9 Anemia, unspecified (principal); D12.3 Benign neoplasm of transverse colon; D12.8 Benign neoplasm of rectum; D12.4 Benign neoplasm of descending colon; D12.5 Benign neoplasm of sigmoid colon; D12.0 Benign neoplasm of cecum; K57.30 Diverticulosis of large intestine without perforation or abscess without bleeding; I10 Essential (primary) hypertension; I42.9 Cardiomyopathy, unspecified; E11.9 Type 2 diabetes mellitus without complications; E78.2 Mixed hyperlipidemia; M10.9 Gout, unspecified; Z95.0 Presence of cardiac pacemaker; Z79.899 Other long term (current) drug therapy
CPT/HCPCS: 45385; C1889; J2704; 88305